=== PATIENT | female | born 1950 | race African-American/Black ===

== ENCOUNTER 2020-08-12 09:45 | Inpatient (IN) | payer OTHER ==
[~2020-08-12] VITALS: Ht 167.6 cm; Wt 90.7 kg
[2020-08-12] MEDS ORDERED: JANUVIA25 MG PO (13:43)
[2020-08-12] MEDS ORDERED: TORSEMIDE5 MG PO (13:43)
[2020-08-12] MEDS ORDERED: ATORVASTATIN CA10 MG PO (13:44)
[2020-08-12] MEDS ORDERED: LYRICA150 MG PO (13:45)
[2020-08-12] MEDS ORDERED: PREGABALIN75 MG PO (13:45)
[2020-08-12] MEDS ORDERED: ZIAC 5-6.25 MG1 EACH PO (13:46)
[2020-08-12] MEDS ORDERED: QUINAPRIL HCL20 MG PO (13:46)
[2020-08-12] MEDS ORDERED: GLIMEPIRIDE2 M1 PO (13:46)
[2020-08-12] MEDS ORDERED: PROTEIN PO (13:47)
[2020-08-12] MEDS ORDERED: ACID REDUCER20 M1 PO (13:47)
[2020-08-12] MEDS ORDERED: LUMIGAN2.5 M1 OP (13:48)
[2020-08-12] MEDS ORDERED: ULTRAM50 MG PO (13:48)
[2020-08-12] MEDS ORDERED: [UNRECOGNIZED DRUG - OTHER] (13:49)
[2020-08-12] MEDS ORDERED: [UNRECOGNIZED DRUG - OTHER] (13:50)
[2020-08-12] MEDS ORDERED: PREDNISO (13:51)
[2020-08-19] MEDS ORDERED: LEVOTHYROXINE50 MCG (08:06)
[2020-08-19] MEDS ORDERED: OMEPRAZOLE20 MG (08:07)
[2020-08-19] MEDS ORDERED: TIMOLOL MALEATE5 M4 (08:07)
[2020-08-19] MEDS ORDERED: DICLOFENAC SOD100 GM (08:07)
[2020-08-19] MEDS ORDERED: XARELTO10 M1 (08:07)
[2020-08-19] MEDS ORDERED: MILLIPRED5 MG (08:08)
[2020-08-19] MEDS ORDERED: BRIMONIDINE TART5 ML (08:09)
[2020-08-19] MEDS ORDERED: G-PREPROTEIN L473 ML (08:10)
[2020-08-20] MEDS ORDERED: CELEBREX200MG PO (08:40)
== END 2020-08-21 17:08 | DRG 470 ==
LOC: SURG 08-19 05:46 → O/R 08-19 05:46 → SURG 08-19 14:21
PROVIDERS: ADMIT Orthopaedic Surgery; ATTEND Orthopaedic Surgery
PROC: 0SRC0J9 Replacement of Right Knee Joint with Synthetic Substitute, Cemented, Open Approach (ICD-10-PCS; principal; 2020-08-19 07:00)
DX: M17.11 Unilateral primary osteoarthritis, right knee (principal); I10 Essential (primary) hypertension; Z20.822 Contact with and (suspected) exposure to COVID-19; Z96.651 Presence of right artificial knee joint; K21.9 Gastro-esophageal reflux disease without esophagitis

== ENCOUNTER 2023-05-05 07:12 | Outpatient (CLI) | payer OTHER ==
[~2023-05-05 07:12] MED LIST: ACID REDUCER20 M1 PO; ATORVASTATIN CA10 MG PO; BRIMONIDINE TART5 ML; CELEBREX200MG PO; DICLOFENAC SOD100 GM; G-PREPROTEIN L473 ML; GLIMEPIRIDE2 M1 PO; JANUVIA25 MG PO; LEVOTHYROXINE50 MCG; LUMIGAN2.5 M1 OP; LYRICA150 MG PO; MILLIPRED5 MG; OMEPRAZOLE20 MG; PREDNISO; PREGABALIN75 MG PO; PROTEIN PO; QUINAPRIL HCL20 MG PO; TIMOLOL MALEATE5 M4; TORSEMIDE5 MG PO; ULTRAM50 MG PO; XARELTO10 M1; ZIAC 5-6.25 MG1 EACH PO; [UNRECOGNIZED DRUG - OTHER]; [UNRECOGNIZED DRUG - OTHER]
== END 2023-05-05 07:13 | disposition home or self-care (01) ==
LOC: NUCLEAR 07:12
PROVIDERS: ATTEND Specialist
DX: D35.1 Benign neoplasm of parathyroid gland (principal)
CPT/HCPCS: 78072; A9500

== ENCOUNTER 2024-04-24 08:27 | Outpatient (CLI) | payer OTHER ==
[2024-04-25 09:07] LABS: ALBUMIN 3.1 gm/dL (3.4-5.0); BILIRUBIN TOTAL 0.4 mg/dL (0.3-1.2); CALCIUM 9.2 mg/dL (8.5-10.1); CREATININE SERUM 1.24 mg/dL (0.55-1.02); GFR 42.17; GLOBULINA 3.3 G/DL (2.4-3.5); POTASSIUM 4.78 mEq/L (3.5-5.1); TOTAL PROTEIN 6.4 gm/dL (6.4-8.2); TSH 1.51 uIU/mL (0.358-3.74)
== END 2024-04-24 23:00 | disposition home or self-care (01) ==
LOC: LAB 08:27
PROVIDERS: ATTEND Surgery
DX: E21.0 Primary hyperparathyroidism (principal); E55.9 Vitamin D deficiency, unspecified

== ENCOUNTER 2024-04-24 09:26 | Outpatient (CLI) | payer OTHER | END 2024-04-24 09:30 | disposition home or self-care (01) | LOC: SONOGRAMA 09:26 | PROVIDERS: ATTEND Surgery | DX: E21.0 Primary hyperparathyroidism (principal) ==

== ENCOUNTER 2024-11-06 12:59 | Outpatient (CLI) | payer OTHER | END 2024-11-06 13:09 | disposition home or self-care (01) | LOC: NUCLEAR 12:59 | PROVIDERS: ATTEND Otolaryngology | DX: E21.0 Primary hyperparathyroidism (principal); M81.0 Age-related osteoporosis without current pathological fracture ==